=== PATIENT | male | born 1925 | race Caucasian/White ===

== ENCOUNTER 2016-10-20 12:49 | Observation (INO) | payer MEDICARE, BC ==
[~2016-10-20] VITALS: Ht 172.7 cm; Wt 69.5 kg
[~2016-10-20 12:49] MED LIST: AFRIN NASAL SPRA3 ML NS; ALBUTEROL0.09 MG/A4 IH; ALDACTONE 25MG25 M1 PO; ALDACTONE25 MG PO; ALDACTONE50 MG PO; AMOXICILLIN875 MG PO; ARICEPT ODT10 MG PO; ASPIRIN 32325 MG/TA1 PO; CALCIUM 500 + D1 TA2 PO; CALCIUM-500 5001 CTB PO; CEFTIN500 MG PO; CLARITIN10 MG PO; CLEOCIN HCL300 MG PO; COD LIVER OIL1 CAP PO; FERRO-TIME325 MG PO; FISH OIL CONC1000 MG PO; FLAX SEED OIL1000 MG PO; FLOMAX 0.40.4 MG/CAP PO; FLOMAX0.4 MG PO; FOSAMAX10 MG PO; IMODIUM 2MG CAPS2 MG PO; KLOR-CON20 MEQ PO; LASIX 20MG TABL20 MG PO; LASIX 40MG TABL40 MG PO; LASIX 80MG TABL80 MG PO; LASIX40 MG PO; LISINOPRIL40 MG PO; MEDI-FIRST ASP325 MG PO; MULTIPLE VITAMI1 TAB PO; NAMENDA 10MG TA10 MG PO; NATURAL VITAM1000 MG PO; NORVASC 5MG5 MG/TAB PO; PROAIR HFA0.09 MG/AC IH; PROBIOTIC ACID1 EAC3 PO; PROCRIT 1010 MU/VIAL IJ; PROSCAR 5MG5 MG PO; REMERON SOLTAB30 MG PO; REVATIO20 MG PO; SEREVENT IH; SINGULAIR 110 MG/TAB PO; SINGULAIR10 MG PO; SUPER B COMPLEX1 TA2 PO; VITAMIN D32000 I1 PO; ZESTRIL2.5 MG PO; ZINC50 M2 PO; ZITHROMAX500 M2 PO; ZOCOR 20MG20 MG PO; ZOCOR 40MG40 MG PO; [UNRECOGNIZED DRUG - CODE]
[2016-10-20 13:18] LABS: BASO % 0.3 % (0.0-2.0); EOS # 0.1 (0.0-0.7); EOS % 2.1 % (0-4.0); GRAN # 4.6 (1.4-6.5); GRAN % 67.5 % (42.2-75.2); LYMPH # 1.2 (1.2-3.4); LYMPH % 18.2 % (20.0-51.0); MEAN CELL VOLUME 93 fl (80.0-100.0); MEAN CORPUSCULAR HGB CONC 34 g/dl (33.0-37.0); MEAN PLATELET VOLUME 10.2 fl (7.4-10.4); MONO # 0.8 (0.1-0.6); MONO % 11.6 % (1.7-9.3); PLATELET COUNT 213 K/mm3 (130-400); RED BLOOD COUNT 3.34 M/mm3 (4.20-5.60); REDCELL DISTRIBUTION WIDTH-CV 13.5 % (11.5-14.5); WHITE BLOOD COUNT 6.8 K/mm3 (4.8-10.8)
[2016-10-20 13:19] LABS: HEMATOCRIT 30.9 % (42.0-52.0); HEMOGLOBIN 10.4 g/dl (13.5-18.0); MEAN CORPUSCULAR HEMOGLOBIN 31 pg (27.0-31.0)
[2016-10-20 13:28] LABS: ADJUSTED CALCIUM 9.3 mg/dL (8.4-10.2); ALBUMIN 4.3 gm/dL (3.5-5.0); BILIRUBIN,TOTAL 0.8 mg/dL (0.0-1.0); CALCIUM 9.5 mg/dL (8.4-10.2); CREATININE, serum 1.13 mg/dL (0.66-1.25); POTASSIUM 4.6 mmol/L (3.4-5.0); TOTAL PROTEIN 7.1 gm/dL (6.4-8.2)
[2016-10-20 13:40] LABS: TROPONIN-I 0.022 ng/mL (0.000-0.034)
[2016-10-20] MEDS ORDERED: LASIX 40MG TABL40 MG PO (14:26)
[2016-10-20 14:36] LABS: PH 5 (5-8); SQUAMOUS EPITHELIAL None Seen /hpf; URINE APPEARANCE Clear; URINE BACTERIA None Seen /hpf; URINE BILIRUBIN Negative (NEGATIVE); URINE BLOOD Negative (NEGATIVE); URINE COLOR Yellow; URINE GLUCOSE Negative (NEGATIVE); URINE KETONE Negative (NEGATIVE); URINE RBC None Seen /hpf; URINE UROBILINOGEN Negative (NEGATIVE); URINE WBC 0-2 /hpf
[2016-10-20 19:39] VITALS: BP 144/73; PULSE 60; TEMP 98.4
[2016-10-20 20:12] LABS: INR 1.2 (0.8-3.0); PROTHROMBIN TIME 12.9 SECONDS (9.7-12.8)
[2016-10-20 20:13] LABS: MAGNESIUM 1.7 mg/dL (1.6-2.3)
[2016-10-20 20:15] LABS: PARTIAL THROMBOPLASTIN TIME 40.6 SECONDS (26.0-37.0)
[2016-10-20 23:02] VITALS: BP 112/48; PULSE 59; TEMP 98.3
[2016-10-21 02:49] VITALS: BP 122/53; PULSE 64; TEMP 98.6
[2016-10-21 07:19] LABS: BASO % 0.1 % (0.0-2.0); EOS # 0.6 (0.0-0.7); EOS % 7.4 % (0-4.0); GRAN # 5.4 (1.4-6.5); LYMPH # 1.7 (1.2-3.4); LYMPH % 19.6 % (20.0-51.0); MEAN CELL VOLUME 94 fl (80.0-100.0); MEAN CORPUSCULAR HGB CONC 33 g/dl (33.0-37.0); MEAN PLATELET VOLUME 10.2 fl (7.4-10.4); MONO # 0.9 (0.1-0.6); MONO % 10.7 % (1.7-9.3); PLATELET COUNT 205 K/mm3 (130-400); RED BLOOD COUNT 3.28 M/mm3 (4.20-5.60); REDCELL DISTRIBUTION WIDTH-CV 13.7 % (11.5-14.5); WHITE BLOOD COUNT 8.7 K/mm3 (4.8-10.8)
[2016-10-21 07:26] LABS: HEMATOCRIT 30.7 % (42.0-52.0); HEMOGLOBIN 10.1 g/dl (13.5-18.0); MEAN CORPUSCULAR HEMOGLOBIN 31 pg (27.0-31.0)
[2016-10-21 07:33] LABS: CALCIUM 9.5 mg/dL (8.4-10.2); CREATININE, serum 0.88 mg/dL (0.66-1.25); POTASSIUM 4.3 mmol/L (3.4-5.0)
[2016-10-21 07:44] LABS: TROPONIN-I 0.029 ng/mL (0.000-0.034)
[2016-10-21 07:59] VITALS: BP 139/62; PULSE 64; TEMP 98.2
[2016-10-21 12:08] VITALS: BP 109/45; PULSE 73; TEMP 98.1
[2016-10-21] MEDS ORDERED: LASIX 40MG TABL40 MG PO (15:44)
== END 2016-10-21 16:38 | disposition home or self-care (01) ==
LOC: COL.ER 12:49 → MEDICAL 18:03
PROVIDERS: Emergency Medicine; Nurse Practitioner Family
DX: R07.9 Chest pain, unspecified (principal); J45.909 Unspecified asthma, uncomplicated; I27.2 Other secondary pulmonary hypertension; E78.5 Hyperlipidemia, unspecified; F03.90 Unspecified dementia, unspecified severity, without behavioral disturbance, psychotic disturbance, mood disturbance, and anxiety; D47.2 Monoclonal gammopathy; I34.0 Nonrheumatic mitral (valve) insufficiency; I07.1 Rheumatic tricuspid insufficiency; D64.9 Anemia, unspecified; N40.0 Benign prostatic hyperplasia without lower urinary tract symptoms; I11.0 Hypertensive heart disease with heart failure; R41.82 Altered mental status, unspecified; Z95.2 Presence of prosthetic heart valve; Z87.891 Personal history of nicotine dependence; Z95.0 Presence of cardiac pacemaker; Z85.828 Personal history of other malignant neoplasm of skin; Z80.6 Family history of leukemia
CPT/HCPCS: 99223-AI; 99239; G0378; G8978-GP; G8979-GP; J1644; J1940; J7030